=== PATIENT | female | born 1980 | race American Indian/Alaskan Native ===

== ENCOUNTER 2017-01-04 16:03 | Inpatient (IN) | payer OTHER ==
[2017-01-04 16:43] LABS: Basophils % (Auto) 0.7 % (0.0-1.8); Eosinophils % (Auto) 3.2 % (0.0-4.3); Hematocrit 40.5 % (30.3-42.9); Hemoglobin 13.2 gm/dl (10.1-14.3); Mean Corpuscular HGB Conc 33 % (30-34); Mean Corpuscular Hemoglobin 28 pg (28-32); Mean Corpuscular Volume 86 fl (79-97); Platelet Count 176 K/mm3 (140-440); Red Blood Count 4.69 M/mm3 (3.65-5.03); Red Cell Distribution Width 14.1 % (13.2-15.2); White Blood Count 9.6 K/mm3 (4.5-11.0)
[2017-01-04 16:55] LABS: Alanine Aminotransferase 32 units/L (7-56); Albumin 2.9 g/dL (3.9-5); Albumin/Globulin Ratio 0.8 %; Alkaline Phosphatase 84 units/L (35-129); Anion Gap 21 mmol/L; Bilirubin,Total 0.6 mg/dL (0.1-1.2); Calcium 9.3 mg/dL (8.4-10.2); Carbon Dioxide 22 mmol/L (22-30); Chloride 99.5 mmol/L (98-107); Glucose 101 mg/dL (65-100); Lipase 52 units/L (13-60); Sodium 139 mmol/L (137-145); Total Protein 6.5 g/dL (6.3-8.2)
[2017-01-04 16:56] LABS: BUN/Creatinine Ratio 1.42; Blood Urea Nitrogen 1 mg/dL (7-17)
[2017-01-04 17:50] LABS: Bacteria,Urine 1+ /HPF (Negative); Bilirubin,Urine NEG (Negative); Blood,Urine SM (Negative); Ketones,Urine 20 mg/dL (Negative); Leukocyte Esterase,Urine LG (Negative); Mucus,Urine 3+ /HPF; Nitrite,Urine NEG (Negative); Urobilinogen,Urine < 2.0 mg/dL (<2.0)
[2017-01-04] MEDS ORDERED: ZOFRAN IV ONE (23:03)
[2017-01-04] MEDS ORDERED: PEPCID IV ONE (23:03)
[2017-01-04] MEDS ORDERED: NACL 0.9% 1000 ML 1,000 ML IV ONE (23:03)
[2017-01-04] MEDS ORDERED: BENTYL PO ONE (23:03)
[2017-01-04] MEDS ORDERED: TORADOL IV ONE (23:03)
[2017-01-04] MEDS ORDERED: K-DUR PO ONE (23:04)
--- NOTE | 2017-01-04 23:05 | Emergency Department Report ---
ED General Adult HPI - General Chief complaint: Abdominal Pain Stated complaint: ABD PAIN,NAUSEA Time Seen by Provider: 01/04/17 22:38 Source: patient, RN notes reviewed Mode of arrival: Ambulatory Limitations: No Limitations - History of Present Illness Initial comments: This is a 36-year-old female, previously unknown to me. 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 She does not recall which side. Thinks it was done at either [facility], or [facility]. Patient presents to the ER with abdominal pain, nausea and vomiting. Abdominal pain is left-sided, and diffuse. It is sharp. It increases with palpation and decreases with rest. Associated with nausea and vomiting. Denies irritative and obstructive urinary symptoms. Denies sexual activity. States no recent sexual partners. No vaginal discharge. Reports also recently been treated for urinary tract infection. Can't recall which antibiotic. -: Gradual Location: abdomen Quality: aching Consistency: constant Improves with: none Worsens with: none Associated Symptoms: loss of appetite, malaise, nausea/vomiting, weakness - Related Data Allergies Allergy/AdvReac Type Severity Reaction Status Date / Time No Known Allergies Allergy Verified 01/04/17 23:07 ED Review of Systems ROS: Stated complaint: ABD PAIN,NAUSEA Other details as noted in HPI Constitutional: malaise, weakness Eyes: denies: eye discharge ENT: denies: epistaxis Respiratory: denies: cough Cardiovascular: denies: chest pain Gastrointestinal: abdominal pain, nausea, vomiting Genitourinary: as per HPI Skin: denies: lesions Neurological: weakness Psychiatric: anxiety ED Past Medical Hx - Past Medical History Hx Hypertension: Yes Hx Diabetes: Yes Additional medical history: High Cholesterol - Surgical History Past Surgical History?: Yes 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 - Social History Smoking Status: Current Every Day Smoker Substance Use Type: None ED Physical Exam - General Limitations: No Limitations General appearance: alert, in no apparent distress - Head Head exam: Present: atraumatic, normocephalic - Eye Eye exam: Present: normal appearance, EOMI. Absent: nystagmus - ENT ENT exam: Present: normal exam, normal orophraynx, mucous membranes moist - Neck Neck exam: Present: normal inspection, full ROM. Absent: tenderness, meningismus - Respiratory Respiratory exam: Present: normal lung sounds bilaterally. Absent: respiratory distress, wheezes, rales, rhonchi, stridor, chest wall tenderness - Cardiovascular Cardiovascular Exam: Present: normal rhythm, tachycardia, normal heart sounds. Absent: systolic murmur, diastolic murmur, rubs, gallop - GI/Abdominal GI/Abdominal exam: Present: soft, tenderness, normal bowel sounds, other (there is mild diffuse abdominal tenderness. There is no rebound, guarding or peritoneal signs.). Absent: distended, guarding, rebound, rigid, pulsatile mass - External exam: Present: normal external exam Speculum exam: Present: normal speculum exam Bi-manual exam: Present: normal bi-manual exam, other (escorted by SHAYE SALVADOR). Absent: cervical motion tendernes, adnexal tenderness, adnexal mass, uterine enlargement, uterine tenderness - Extremities Exam Extremities exam: Present: normal inspection, full ROM, normal capillary refill. Absent: tenderness, pedal edema, joint swelling, calf tenderness, other - Back Exam Back exam: Present: normal inspection, full ROM. Absent: tenderness, CVA tenderness (R), CVA tenderness (L), muscle spasm, paraspinal tenderness, vertebral tenderness - Neurological Exam Neurological exam: Present: alert, oriented X3, normal gait, other (Extraocular movements intact. Tongue midline. No facial droop. Facial sensation intact to light touch in the V1, V2, V3 distribution bilaterally. 5 and 5 strength in 4 extremities.. Sensation is intact to light touch in 4 extremities.). Absent : motor sensory deficit - Psychiatric Psychiatric exam: Present: normal affect, normal mood - Skin Skin exam: Present: warm, dry, intact, normal color. Absent: rash ED Course Vital Signs 01/04/17 01/05/17 16:11 00:06 Temperature 98.5 F Pulse Rate 112 H Respiratory 20 18 Rate Blood Pressure 158/113 O2 Sat by Pulse 100 99 Oximetry - Reevaluation(s) Reevaluation #1: 01/05/17 01:11 Differential diagnoses: Colitis, diverticulitis, appendicitis, urinary tract infection, dehydration, cyclical vomiting syndrome, narcotic bowel syndrome, cannabinoid hyperemesis syndrome, irritable bowel disease, electrolyte imbalance Assessment and plan: 36-year-old female with abdominal pain, benign gynecologic examination, wet prep demonstrates trichomoniasis. She is afebrile, and found to have hypokalemia. Magnesium is within normal limits. Initial urinalysis contaminated. Patient was instructed on how to produce a repeat clean catch urine sample. Repeat clean catch urine sample still contaminated. CAT scan of the abdomen and pelvis demonstrates nonspecific colitis, may be infectious inflammatory or ischemic. Mesenteric fat stranding is noted in the left upper quadrant around the pancreas , might be postinflammatory versus pancreatitis. Patient was given IV antiemetic medications 2. She was unable to tolerate liquid feeds. Given her CT scan findings, hypokalemia, inability to tolerate liquid feeds, persistent nausea and vomiting, case is discussed with the Hospital physician, Dr. Mendoza, who accepted the patient to his service. ED Medical Decision Making - Lab Data Result diagrams: 01/04/17 16:19 01/04/17 16:19 Vital Signs 01/04/17 01/05/17 16:11 00:06 Temperature 98.5 F Pulse Rate 112 H Respiratory 20 18 Rate Blood Pressure 158/113 O2 Sat by Pulse 100 99 Oximetry Lab Results 01/04/17 01/04/17 01/04/17 Range/Units 16:19 16:19 16:19 WBC 9.6 (4.5-11.0) K/mm3 RBC 4.69 (3.65-5.03) M/mm3 Hgb 13.2 (10.1-14.3) gm/dl Hct 40.5 (30.3-42.9) % MCV 86 (79-97) fl MCH 28 (28-32) pg MCHC 33 (30-34) % RDW 14.1 (13.2-15.2) % Plt Count 176 (140-440) K/mm3 Lymph % (Auto) 33.3 (13.4-35.0) % Grant % (Auto) 9.9 H (0.0-7.3) % Eos % (Auto) 3.2 (0.0-4.3) % Baso % (Auto) 0.7 (0.0-1.8) % Lymph # 3.2 (1.2-5.4) K/mm3 Grant # 1.0 H (0.0-0.8) K/mm3 Eos # 0.3 (0.0-0.4) K/mm3 Baso # 0.1 (0.0-0.1) K/mm3 Seg Neutrophils % 52.9 (40.0-70.0) % Seg Neutrophils # 5.1 (1.8-7.7) K/mm3 Sodium 139 (137-145) mmol/L Potassium 3.0 L (3.6-5.0) mmol/L Chloride 99.5 (98-107) mmol/L Carbon Dioxide 22 (22-30) mmol/L Anion Gap 21 mmol/L BUN 1 L (7-17) mg/dL Creatinine 0.7 (0.7-1.2) mg/dL Estimated GFR > 60 ml/min BUN/Creatinine Ratio 1.42 % Glucose 101 H (65-100) mg/dL POC Glucose 106 H (70-105) Calcium 9.3 (8.4-10.2) mg/dL Magnesium (1.7-2.3) mg/dL Total Bilirubin 0.6 (0.1-1.2) mg/dL AST 37 (5-40) units/L ALT 32 (7-56) units/L Alkaline Phosphatase 84 (35-129) units/L Total Protein 6.5 (6.3-8.2) g/dL Albumin 2.9 L (3.9-5) g/dL Albumin/Globulin Ratio 0.8 % Lipase 52 (13-60) units/L Urine Color (Yellow) Urine Turbidity (Clear) Urine pH (5.0-7.0) Ur Specific [place] (1.003-1.030) Urine Protein (Negative) mg/dL Urine Glucose (UA) (Negative) mg/dL Urine Ketones (Negative) mg/dL Urine Blood (Negative) Urine Nitrite (Negative) Urine Bilirubin (Negative) Urine Urobilinogen (<2.0) mg/dL Ur Leukocyte Esterase (Negative) Urine WBC (Auto) (0.0-6.0) /HPF Urine RBC (Auto) (0.0-6.0) /HPF U Epithel Cells (Auto) (0-13.0) /HPF Urine Bacteria (Auto) (Negative) /HPF Urine WBC Clumps /HPF Calcium Oxalate Crystal Urine Mucus /HPF 01/04/17 01/04/17 01/04/17 Range/Units 23:15 23:48 Unknown WBC (4.5-11.0) K/mm3 RBC (3.65-5.03) M/mm3 Hgb (10.1-14.3) gm/dl Hct (30.3-42.9) % MCV (79-97) fl MCH (28-32) pg MCHC (30-34) % RDW (13.2-15.2) % Plt Count (140-440) K/mm3 Lymph % (Auto) (13.4-35.0) % Grant % (Auto) (0.0-7.3) % Eos % (Auto) (0.0-4.3) % Baso % (Auto) (0.0-1.8) % Lymph # (1.2-5.4) K/mm3 Grant # (0.0-0.8) K/mm3 Eos # (0.0-0.4) K/mm3 Baso # (0.0-0.1) K/mm3 Seg Neutrophils % (40.0-70.0) % Seg Neutrophils # (1.8-7.7) K/mm3 Sodium (137-145) mmol/L Potassium (3.6-5.0) mmol/L Chloride (98-107) mmol/L Carbon Dioxide (22-30) mmol/L Anion Gap mmol/L BUN (7-17) mg/dL Creatinine (0.7-1.2) mg/dL Estimated GFR ml/min BUN/Creatinine Ratio % Glucose (65-100) mg/dL POC Glucose (70-105) Calcium (8.4-10.2) mg/dL Magnesium 1.7 (1.7-2.3) mg/dL Total Bilirubin (0.1-1.2) mg/dL AST (5-40) units/L ALT (7-56) units/L Alkaline Phosphatase (35-129) units/L Total Protein (6.3-8.2) g/dL Albumin (3.9-5) g/dL Albumin/Globulin Ratio % Lipase (13-60) units/L Urine Color Aleja Yellow (Yellow) Urine Turbidity Turbid Cloudy (Clear) Urine pH 5.0 6.0 (5.0-7.0) Ur Specific [place] 1.017 1.013 (1.003-1.030) Urine Protein 100 mg/dl 30 mg/dl (Negative) mg/dL Urine Glucose (UA) Neg Neg (Negative) mg/dL Urine Ketones 20 20 (Negative) mg/dL Urine Blood Sm Sm (Negative) Urine Nitrite Neg Neg (Negative) Urine Bilirubin Neg Neg (Negative) Urine Urobilinogen < 2.0 < 2.0 (<2.0) mg/dL Ur Leukocyte Esterase Mod Lg (Negative) Urine WBC (Auto) 155.0 H 70.0 H (0.0-6.0) /HPF Urine RBC (Auto) 82.0 26.0 (0.0-6.0) /HPF U Epithel Cells (Auto) 86.0 H 19.0 H (0-13.0) /HPF Urine Bacteria (Auto) 4+ 1+ (Negative) /HPF Urine WBC Clumps 2+ /HPF Calcium Oxalate Crystal 2+ Urine Mucus 3+ 3+ /HPF - Radiology Data Radiology results: report reviewed, image reviewed CAT scan of the abdomen and pelvis with IV contrast: Appendix within normal limits. Pericolonic fat stranding. Findings are suspicious for nonspecific colitis, most pronounced in the left colon. There is mesenteric fat stranding in the left upper quadrant around the pancreatic tail, most likely postinflammatory change, cannot exclude pancreatitis. Critical care attestation.: If time is entered above; I have spent that time in minutes in the direct care of this critically ill patient, excluding procedure time. ED Disposition Clinical Impression: Colitis, Hypokalemia Disposition: OP ADMITTED IP TO THIS HOSP Is pt being admited?: Yes Condition: Good Instructions: Abdominal Pain (ED) Referrals: PRIMARY CARE, [Primary Care Provider] - 3-5 Days
[2017-01-04 23:44] LABS: Bacteria,Urine 4+ /HPF (Negative); Bilirubin,Urine NEG (Negative); Blood,Urine SM (Negative); Ketones,Urine 20 mg/dL (Negative); Leukocyte Esterase,Urine MOD (Negative); Mucus,Urine 3+ /HPF; Nitrite,Urine NEG (Negative); Urobilinogen,Urine < 2.0 mg/dL (<2.0)
[2017-01-04] MEDS ORDERED: NACL ONE (23:54)
[2017-01-05] MEDS: KCL 10MEQ/100ML 10 MEQ/100 ML BAG IV SCH ×5 (00:35→09:54)
[2017-01-05] MEDS ORDERED: REGLAN ONE (01:00)
--- NOTE | 2017-01-05 01:00 | Cat Scan Report ---
FINAL REPORT EXAM: CT ABDOMEN PELVIS W CON HISTORY: abd pain n/v TECHNIQUE: Spiral CT scanning of the abdomen and pelvis after the uneventful administration of IV contrast. Multiplanar reformations. 100 mL Omnipaque IV. PRIORS: None. FINDINGS: Abdomen: Visualized lung bases grossly unremarkable. Very small hiatal hernia. Diffuse mesenteric fat stranding in the left upper quadrant around the pancreatic tail and adjacent to splenic flexure of the colon. Surgical clips in the upper abdomen near left adrenal gland. Ovoid, soft tissue nodular density in the right anteromedial diaphragmatic region measuring 1.4 x 2.4 cm may represent prominent lymph node, but nonspecific. No radiopaque gallstones. Liver shows diffusely decreased attenuation without focal abnormality. Spleen without significant abnormality. Remainder of pancreas without significant abnormality. Kidneys without significant abnormality. Adrenal glands without significant abnormality. Pelvis: Colon is incompletely or nondistended, with variable bowel wall and fold thickening, most pronounced in the descending and sigmoid colon, with some pericolonic fat stranding. Remainder of visualized bowel grossly unremarkable. Appendix within normal limits. No significant free peritoneal fluid or discrete abscess. Aortoiliac calcification, out of proportion to patient's age, without aneurysmal dilatation. Fat-containing, bilateral inguinal hernias. IMPRESSION: 1. Findings suspicious for nonspecific postinflammatory change or colitis, most pronounced in the left colon, which may be secondary to infectious, inflammatory or ischemic etiology. Clinical correlation and followup suggested. 2. Mesenteric fat stranding in left upper quadrant around the pancreatic tail cannot exclude postinflammatory change involving the pancreas or pancreatitis. Clinical correlation with appropriate laboratory values and may be warranted. 3. Findings compatible with fatty infiltration in the liver.
[2017-01-05] MEDS ORDERED: REGLAN IV ONE (01:05)
[2017-01-05] MEDS ORDERED: LEVAQUIN 750MG/150ML 750 MG/150 ML BAG IV ONE (01:05)
[2017-01-05] MEDS ORDERED: FLAGYL 500 MG/100 ML 500 MG/100 ML BAG IV SCH (02:00)
--- NOTE | 2017-01-05 05:18 | History and Physical Report ---
History of Present Illness Date of examination: 01/05/17 Date of admission: 01/05/2017 Chief complaint: Left upper quadrant pain for 2 days History of present illness: 36 year old female presents with LUQ pain associated with N/V for about 2 days.No fever or chills.Feels weak.No dysuria or flank pain. Past History Past Medical History: diabetes, hypertension, hyperlipidemia Past Surgical History: Other (Partial adrenalectomy-Side not known) Social history: smoking (1 ppd) Family history: diabetes, hypertension Medications and Allergies Allergies Allergy/AdvReac Type Severity Reaction Status Date / Time No Known Allergies Allergy Verified 01/04/17 23:07 Home Medications Medication Instructions Recorded Confirmed Last Taken Type Carvedilol 25 mg PO BID 01/05/17 01/05/17 Unknown History Hydrocortisone [Cortef TAB] 5 mg PO BID 01/05/17 01/05/17 Unknown History Insulin Detemir [Levemir VIAL] 25 unit SQ QHS 01/05/17 01/05/17 Unknown History Lisinopril [Zestril TAB] 40 mg PO QDAY 01/05/17 01/05/17 Unknown History Rosuvastatin Calcium [Crestor] 40 mg PO QHS 01/05/17 01/05/17 Unknown History Review of Systems All systems: negative Gastrointestinal: abdominal pain (LUQ pain), nausea, vomiting Exam - Constitutional Vitals: Temp Pulse Resp BP Pulse Ox 98.1 F 100 H 18 134/90 99 01/05/17 00:30 01/05/17 03:52 01/05/17 03:52 01/05/17 03:52 01/05/17 03:52 General appearance: Present: no acute distress, well-nourished - EENT Eyes: Present: PERRL ENT: hearing intact, clear oral mucosa - Neck Neck: Present: supple, normal ROM - Respiratory Respiratory effort: normal Respiratory: bilateral: CTA - Cardiovascular Heart Sounds: Present: S1 & S2. Absent: rub, click - Extremities Extremities: pulses symmetrical, No edema Peripheral Pulses: within normal limits - Abdominal General gastrointestinal: Present: soft, tender (Left upper quadrant tenderness) , normal bowel sounds Female genitourinary: Present: normal - Integumentary Integumentary: Present: clear, warm, dry - Musculoskeletal Musculoskeletal: gait normal, strength equal bilaterally - Psychiatric Psychiatric: appropriate mood/affect, intact judgment & insight - Neurologic Neurologic: CNII-XII intact, moves all extremities Results - Labs CBC & Chem 7: 01/05/17 06:45 01/05/17 06:45 Labs: Abnormal lab results 01/04/17 01/04/17 01/04/17 Range/Units 16:19 16:19 16:19 [place] % (Auto) 9.9 H (0.0-7.3) % [place] # 1.0 H (0.0-0.8) K/mm3 Potassium 3.0 L (3.6-5.0) mmol/L BUN 1 L (7-17) mg/dL Glucose 101 H (65-100) mg/dL POC Glucose 106 H (70-105) Albumin 2.9 L (3.9-5) g/dL Urine WBC (Auto) (0.0-6.0) /HPF U Epithel Cells (Auto) (0-13.0) /HPF 01/04/17 01/04/17 Range/Units 23:15 Unknown [place] % (Auto) (0.0-7.3) % [place] # (0.0-0.8) K/mm3 Potassium (3.6-5.0) mmol/L BUN (7-17) mg/dL Glucose (65-100) mg/dL POC Glucose (70-105) Albumin (3.9-5) g/dL Urine WBC (Auto) 155.0 H 70.0 H (0.0-6.0) /HPF U Epithel Cells (Auto) 86.0 H 19.0 H (0-13.0) /HPF Short CBC 01/04/17 01/05/17 Range/Units 16:19 06:45 WBC 9.6 9.0 (4.5-11.0) K/mm3 Hgb 13.2 12.0 (10.1-14.3) gm/dl Hct 40.5 35.7 (30.3-42.9) % Plt Count 176 166 (140-440) K/mm3 BMP 01/04/17 01/05/17 16:19 06:45 Sodium 139 142 Potassium 3.0 L 3.5 L Chloride 99.5 104.6 Carbon Dioxide 22 21 L BUN 1 L 3 L Creatinine 0.7 0.7 Glucose 101 H 82 Calcium 9.3 8.8 Liver Function 01/04/17 01/05/17 Range/Units 16:19 06:45 Total Bilirubin 0.6 0.5 (0.1-1.2) mg/dL AST 37 28 (5-40) units/L ALT 32 24 (7-56) units/L Alkaline Phosphatase 84 75 (35-129) units/L Albumin 2.9 L 2.5 L (3.9-5) g/dL Urine 01/04/17 01/04/17 Range/Units 23:15 Unknown Urine Color Aleja Yellow (Yellow) Urine pH 5.0 6.0 (5.0-7.0) Ur Specific [place] 1.017 1.013 (1.003-1.030) Urine Protein 100 mg/dl 30 mg/dl (Negative) mg/dL Urine Glucose (UA) Neg Neg (Negative) mg/dL - Imaging and Cardiology CT scan - abdomen: report reviewed (L Splenic flexure colitis) Assessment and Plan - Patient Problems (1) Colitis Current Visit: Yes Status: Acute Plan to address problem: Clear liquid diet Zosyn and flagyl iv started GI consulted IV zofran and IV dilaudid for pain and nausea (2) Hypokalemia Current Visit: Yes Status: Acute Plan to address problem: Supplemented (3) HTN (hypertension) Current Visit: Yes Status: Chronic Qualifiers: Hypertension type: essential hypertension Qualified Code(s): I10 - Essential (primary) hypertension Plan to address problem: Resume antihypertensives (4) IDDM (insulin dependent diabetes mellitus) Current Visit: Yes Status: Chronic Plan to address problem: Coverage for now (5) HLD (hyperlipidemia) Current Visit: Yes Status: Chronic Qualifiers: Hyperlipidemia type: mixed hyperlipidemia Qualified Code(s): E78.2 - Mixed hyperlipidemia Plan to address problem: Cont statins (6) DVT prophylaxis Current Visit: Yes Status: Acute Plan to address problem: On lovenox
[2017-01-05] MEDS ORDERED: TYLENOL PO PRN (05:21)
[2017-01-05] MEDS ORDERED: ZOFRAN IV PRN (05:21)
[2017-01-05] MEDS ORDERED: DULCOLAX PR PRN (05:21)
[2017-01-05] MEDS ORDERED: MILK OF MAGNESIA PO PRN (05:21)
[2017-01-05] MEDS ORDERED: KCL 10MEQ/100ML 10 MEQ/100 ML BAG IV ONE (05:22)
[2017-01-05] MEDS ORDERED: NOVOLOG SUB-Q ONE (05:37)
[2017-01-05] MEDS ORDERED: NACL 0.9% 1000 ML 1,000 ML IV SCH (06:00)
[2017-01-05 07:06] LABS: Basophils % (Auto) 2.5 % (0.0-1.8); Eosinophils % (Auto) 4.2 % (0.0-4.3); Hematocrit 35.7 % (30.3-42.9); Mean Corpuscular HGB Conc 34 % (30-34); Mean Corpuscular Hemoglobin 29 pg (28-32); Mean Corpuscular Volume 86 fl (79-97); Platelet Count 166 K/mm3 (140-440); Red Blood Count 4.15 M/mm3 (3.65-5.03); Red Cell Distribution Width 14.4 % (13.2-15.2)
[2017-01-05 07:20] LABS: Alanine Aminotransferase 24 units/L (7-56); Albumin 2.5 g/dL (3.9-5); Albumin/Globulin Ratio 0.8 %; Alkaline Phosphatase 75 units/L (35-129); Anion Gap 20 mmol/L; BUN/Creatinine Ratio 4.28; Bilirubin,Total 0.5 mg/dL (0.1-1.2); Blood Urea Nitrogen 3 mg/dL (7-17); Calcium 8.8 mg/dL (8.4-10.2); Carbon Dioxide 21 mmol/L (22-30); Chloride 104.6 mmol/L (98-107); Glucose 82 mg/dL (65-100); Potassium 3.5 mmol/L (3.6-5.0); Sodium 142 mmol/L (137-145); Total Protein 5.6 g/dL (6.3-8.2)
[2017-01-05] MEDS: ZOSYN/NS 4.5GM/100ML 4.5 GM/100 ML VIAL IV SCH ×3 (07:35→22:32)
[2017-01-05] MEDS: FLAGYL 500 MG/100 ML 500 MG/100 ML BAG IV SCH ×2 (09:55→17:11)
[2017-01-05] MEDS ORDERED: CATAPRES-TTS PATCH TD SCH (10:00)
[2017-01-05] MEDS: LOVENOX SUB-Q SCH (10:30)
--- NOTE | 2017-01-05 13:00 | Event Note ---
Date: 01/05/17 Patient with colitis and UTI. She was seen and examined. Continue current management. Repeat BMP.
[2017-01-05 13:47] LABS: BUN/Creatinine Ratio 4.28; Blood Urea Nitrogen 3 mg/dL (7-17); Calcium 8.9 mg/dL (8.4-10.2); Carbon Dioxide 21 mmol/L (22-30); Glucose 83 mg/dL (65-100)
[2017-01-05 13:48] LABS: Chloride 101.7 mmol/L (98-107); Potassium 3.6 mmol/L (3.6-5.0); Sodium 139 mmol/L (137-145)
[2017-01-05 13:49] LABS: Anion Gap 20 mmol/L
[2017-01-05] MEDS: HABITROL TD SCH (14:59)
[2017-01-05] MEDS: DILAUDID IV PRN (16:31)
[2017-01-05] MEDS: K-DUR PO SCH (16:41)
[2017-01-05] MEDS: ZOFRAN IV PRN (17:47)
[2017-01-05] MEDS: D5NS 1,000 ML IV SCH (17:47)
[2017-01-06] MEDS: DILAUDID IV PRN (00:13)
[2017-01-06] MEDS: REGLAN IV PRN (00:14)
[2017-01-06] MEDS: FLAGYL 500 MG/100 ML 500 MG/100 ML BAG IV SCH ×3 (01:33→19:54)
[2017-01-06] MEDS: ZOSYN/NS 4.5GM/100ML 4.5 GM/100 ML VIAL IV SCH ×3 (05:35→22:44)
[2017-01-06 06:47] LABS: Basophils % (Auto) 0.5 % (0.0-1.8); Eosinophils % (Auto) 6.4 % (0.0-4.3); Hematocrit 34.3 % (30.3-42.9); Hemoglobin 11.4 gm/dl (10.1-14.3); Mean Corpuscular HGB Conc 33 % (30-34); Mean Corpuscular Hemoglobin 29 pg (28-32); Mean Corpuscular Volume 87 fl (79-97); Platelet Count 156 K/mm3 (140-440); Red Blood Count 3.95 M/mm3 (3.65-5.03); Red Cell Distribution Width 14.5 % (13.2-15.2); White Blood Count 6.3 K/mm3 (4.5-11.0)
[2017-01-06 07:00] LABS: BUN/Creatinine Ratio 4.28; Blood Urea Nitrogen 3 mg/dL (7-17); Calcium 8.4 mg/dL (8.4-10.2); Carbon Dioxide 22 mmol/L (22-30); Chloride 104.6 mmol/L (98-107); Glucose 100 mg/dL (65-100); Potassium 3.2 mmol/L (3.6-5.0); Sodium 142 mmol/L (137-145)
[2017-01-06 07:14] LABS: Anion Gap 19 mmol/L
--- NOTE | 2017-01-06 08:17 | Consultation ---
REFERRING PHYSICIAN: Dre Shields MD. INDICATION: Abdominal pain. HISTORY OF PRESENT ILLNESS: The patient is a 36-year-old black female, presents for abdominal pain. The patient reports two days of lower left-sided abdominal pain associated with some nausea and vomiting. She reports no fevers or chills. She reports no diarrhea, constipation or rectal bleeding. The patient reports she has had this intermittent pain for about a month and gives a vague history that she had been to [facility] times and was treated conservatively and sent home without colonoscopy. She subsequently came to the Emergency Room and evaluated. CT scan done at that time showed colitis and she subsequently was admitted and GI consulted. No other specific problems or complaints. PAST MEDICAL HISTORY: 1. Diabetes. 2. Hypertension. 3. High cholesterol. 4. Status post partial adrenalectomy. MEDICATIONS: See chart. ALLERGIES: No known drug allergies. SOCIAL HISTORY: One pack a day smoker. FAMILY HISTORY: Negative for colon cancer. REVIEW OF SYSTEMS: GENERAL: Reports mild weakness. HEENT: No visual complaints or tinnitus. PULMONARY: No shortness of breath. No cough. No chest pain. GASTROINTESTINAL: Reports abdominal pain. All points of 13-point review of systems otherwise negative. PHYSICAL EXAMINATION: VITAL SIGNS: Temperature of 98.7, pulse 70, respirations 20, blood pressure 145/89. GENERAL: Fairly nourished black female, in mild distress. HEENT: Pupils equal, round, reactive to light and accommodation. Extraocular muscles intact. PULMONARY: Clear to auscultation bilaterally. CARDIOVASCULAR: Regular rhythm. Normal S1, S2. ABDOMEN: Soft. Mild lower abdominal discomfort, no guarding, no rebound. SKIN: No obvious rashes. LABORATORY DATA: Pertinent for white count of 9, hemoglobin and hematocrit of 12.0 and 35.7, platelet count of 166,000. Chem-7 within normal limits. LFTs within normal limits. CT scan shows findings suspicious for nonspecific postinflammatory changes or colitis in the left colon and fat stranding in the left upper quadrant around the pancreatic tail can exclude possible pancreatitis. ASSESSMENT: A 36-year-old black female presents with 2-3 days of lower abdominal pain and cramping with CT scan showing signs of colitis. There is also a vague mention of some inflammatory changes, raising possibility of pancreatitis, though her exam was more consistent with lower abdominal findings. Management as noted below. PLAN: 1. We will review CT scan. 2. We will get labs including amylase and lipase in a.m. as well as CRP. 3. Agree with antibiotics as ordered. 4. The patient gives a vague history that she has had these symptoms over the last month and based on progress, we will consider colonoscopy. 5. Clear liquid diet at this time with advance diet based on progress. 6. We will follow. JOB# [id number] MAI/EUGENIA CAREY
--- NOTE | 2017-01-06 08:19 | Admit Criteria Form ---
Admission Criteria Documentation: ABDOMINAL PAIN Clinical Indications for Admission to Inpatient Care (Place 'X' for any and all applicable criteria): Admission is indicated for ANY ONE of the following(1)(2)(3)(4)(5): [X]I. Inpatient admission required rather than observation care (Also use Abdominal Pain: Observation Care, as appropriate) because of ANY ONE of the following: [X]a) Severe pain requiring acute inpatient management [X]b) Identification of etiology/finding that requires inpatient care (eg, aortic dissection, free air) [ ]c) Absent bowel sounds with complete ileus(6) [ ]d) Suspected toxic megacolon [X]e) Severe electrolyte abnormalities requiring inpatient care [ ]f) High fever or infection requiring inpatient admission as indicated by ANY ONE of following(7)(8): [ ] i) Appropriate outpatient or observational care antimicrobial treatment unavailable, not effective, or not feasible [ ] ii) Documented bacteremia [ ] iii) Temperature > 104.9 degrees F (oral) [ ] iv) T >103.1 F (oral) or < 96.8 F(rectal) that does not respond to all emergency treatment measures [ ]g) Signs of intestinal obstruction [B] [ ]h) Hemodynamic instability [ ]i) IV fluid to replace significant ongoing losses (greater than 3 L/m2 per day) (12)(13) [ ]j) Percutaneous or open drainage (eg, abscess, biliary tract ) procedures [ ]k) Parenteral nutrition regimen that must be implemented on inpatient basis [X]l) Other condition,treatment or monitoring requiring inpatient admission. [ ]II. Peritoneal signs present [ ]III. Surgery needed that cannot be performed on an ambulatory basis. [ ]IV. Evaluation requires patient to not eat or drink for extended period ( eg, more than 24 hours). [ ]V. Contraindications and/or Inappropriate clinical situations for Observational Care in patients with abdominal pain, when ANY ONE of the following is required: [ ]a) Thorough evaluation is required to prevent catastrophic events due to delays in diagnosing (e.g.Mesenteric ischemia) 1,3 [ ]b) Patient with severe pathology or with chronic symptoms unlikely to improve in the ED stay (3) [ ]. General contraindications and/or Inappropriate clinical situations for Observational Care in patients with abdominal pain, when ANY ONE of the following is required: [ ]a) Prediction of prolongation of LOS based on ANY ONE of the following may be considered as a contraindication for observational care 2, 3, 4, 5, 6, 7, 8, 9, 10, 11 [ ]i) Age > 65 yrs. [ ]ii) Patient arriving by ambulance [ ]iii) Patient with high acuity [ ]iv) Patient requiring vital sign monitoring [ ]v) Patient on IV medication [ ]b) Systolic blood pressures 180mmHg 3,12 [ ]c) Patient with altered mental status including delirium and other alteration of consciousness, (3) [ ]d) Patient whose discharge disposition will be to a halfway home or rehabilitation home should not be managed in Emergency Department Observation Unit. CMS rule requires 3 days hospital stay before such placement.3,13 [ ]e) Patient with failure to thrive due to broad array of etiologies 3,16,17 [ ]f) Inability to ambulate 3,14 Extended stay beyond goal length of stay may be needed for(2)(3): [ ]a) Persistent abdominal pain with suspected intra-abdominal process [ ]b) Diagnosed condition requiring continued stay (e.g., pancreatitis, complicated diverticulitis) [ ]c) Surgery (e.g., colectomy) The original [facility] content created by [employer] has been revised. The portions of the content which have been revised are identified through the use of italic text or in bold, and [facility] has neither reviewed nor approved the modified material.All other unmodified content is copyright [facility]. Please see references footnoted in the original [facility] edition 2016 Admission Criteria Met: Yes
[2017-01-06] MEDS: KCL 10MEQ/100ML 10 MEQ/100 ML BAG IV SCH ×2 (08:39→11:33)
--- NOTE | 2017-01-06 08:59 | Gastroenterology Progress Note ---
Assessment and Plan GI: pt h/o dm presents w/ abdominal pain and signs colitis now w/ continued symptoms - possible gastroparesis as contributing factor w/ colitis - continue current meds and diet - if symptoms persist today probable egd/colon in am - start Carafate susp qid w/ ppi qd - will follow - Subjective Date of service: 01/06/17 Interval history: - reports continued nausea, vomiting w/ decrease abdominal pain Objective - Constitutional Vitals: Temp Pulse Resp BP Pulse Ox 98.2 F 88 20 152/94 98 01/06/17 00:00 01/06/17 00:00 01/06/17 00:00 01/06/17 00:00 01/06/17 00:00 General appearance: no acute distress - EENT ENT: hearing intact - Respiratory Respiratory: bilateral: CTA - Cardiovascular Rhythm: regular Heart Sounds: Present: S1 & S2 - Gastrointestinal General gastrointestinal: Present: soft, non-tender - Labs CBC & Chem 7: 01/06/17 06:16 01/06/17 06:16 Labs: Laboratory Results - last 24 hr 01/05/17 01/05/17 01/05/17 06:45 13:12 22:03 WBC RBC Hgb Hct MCV MCH MCHC RDW Plt Count Lymph % (Auto) [place] % (Auto) Eos % (Auto) Baso % (Auto) Lymph # Bib[place] # Eos # Baso # Seg Neutrophils % Seg Neutrophils # Sodium 139 Potassium 3.6 Chloride 101.7 Carbon Dioxide 21 L Anion Gap 20 BUN 3 L Creatinine 0.7 Estimated GFR > 60 BUN/Creatinine Ratio 4.28 Glucose 83 POC Glucose 100 Hemoglobin A1c 7.5 H Calcium 8.9 C-Reactive Protein Lipase 01/06/17 01/06/17 01/06/17 06:06 06:16 06:16 WBC 6.3 RBC 3.95 Hgb 11.4 Hct 34.3 MCV 87 MCH 29 MCHC 33 RDW 14.5 Plt Count 156 Lymph % (Auto) 29.6 Bib[place] % (Auto) 13.7 H Eos % (Auto) 6.4 H Baso % (Auto) 0.5 Lymph # 1.9 Bibb # 0.9 H Eos # 0.4 Baso # 0.0 Seg Neutrophils % 49.8 Seg Neutrophils # 3.1 Sodium 142 Potassium 3.2 L Chloride 104.6 Carbon Dioxide 22 Anion Gap 19 BUN 3 L Creatinine 0.7 Estimated GFR > 60 BUN/Creatinine Ratio 4.28 Glucose 100 POC Glucose 91 Hemoglobin A1c Calcium 8.4 C-Reactive Protein Lipase 01/06/17 06:16 WBC RBC Hgb Hct MCV MCH MCHC RDW Plt Count Lymph % (Auto) [place] % (Auto) Eos % (Auto) Baso % (Auto) Lymph # Bib[place] # Eos # Baso # Seg Neutrophils % Seg Neutrophils # Sodium Potassium Chloride Carbon Dioxide Anion Gap BUN Creatinine Estimated GFR BUN/Creatinine Ratio Glucose POC Glucose Hemoglobin A1c Calcium C-Reactive Protein 1.00 Lipase 29
[2017-01-06] MEDS: D5NS 1,000 ML IV SCH (09:12)
[2017-01-06] MEDS: LOVENOX SUB-Q SCH (09:13)
[2017-01-06] MEDS: K-DUR PO SCH (09:13)
[2017-01-06] MEDS: HABITROL TD SCH (09:13)
[2017-01-06] MEDS ORDERED: FLUARIX QUAD 2016-2017(36 MOS+) IM ONE (12:00)
[2017-01-06] MEDS ORDERED: PNEUMOVAX 23 IM ONE (12:00)
--- NOTE | 2017-01-06 13:12 | Progress Note ---
Assessment and Plan Assessment and plan: Colitis with abdominal pain, Nausea and vomiting. Zofran IV when necessary. IV fluids. GI consulted. Diabetes mellitus type II. Fingerstick blood glucose before every meal and at bedtime Hypertension, the patient has been stable Hyperliipidemia Full CODE STATUS History Interval history: still has nausea and vomiting, no diarrhea Hospitalist Physical - Physical exam Narrative exam: Gen appearance: not in acute distress, HEENT: Normocephalic, atraumatic Neck : supple, no JVD Lungs: Lungs clear to auscultation bilaterally, no crackles or wheeze. Heart : S1 and S2 regular, no murmurs rubs or gallop, Abdomen: soft, non-tender, non distended, normal bowel sounds Extremities: No edema, clubbing, or cyanosis, Neuro :awake ,alert , oriented x 3, no focal signs Psych: calm - Constitutional Vitals: Temp Pulse Resp BP Pulse Ox 98.0 F 92 H 20 143/96 100 01/06/17 08:16 01/06/17 08:16 01/06/17 08:16 01/06/17 08:16 01/06/17 08:16 General appearance: Present: no acute distress, well-nourished Results - Labs CBC & Chem 7: 01/06/17 06:16 01/07/17 08:53 Labs: Laboratory Last Values WBC 6.3 K/mm3 (4.5-11.0) 01/06/17 06:16 RBC 3.95 M/mm3 (3.65-5.03) 01/06/17 06:16 Hgb 11.4 gm/dl (10.1-14.3) 01/06/17 06:16 Hct 34.3 % (30.3-42.9) 01/06/17 06:16 MCV 87 fl (79-97) 01/06/17 06:16 MCH 29 pg (28-32) 01/06/17 06:16 MCHC 33 % (30-34) 01/06/17 06:16 RDW 14.5 % (13.2-15.2) 01/06/17 06:16 Plt Count 156 K/mm3 (140-440) 01/06/17 06:16 Lymph % (Auto) 29.6 % (13.4-35.0) 01/06/17 06:16 [place] % (Auto) 13.7 % (0.0-7.3) H 01/06/17 06:16 Eos % (Auto) 6.4 % (0.0-4.3) H 01/06/17 06:16 Baso % (Auto) 0.5 % (0.0-1.8) 01/06/17 06:16 Lymph # 1.9 K/mm3 (1.2-5.4) 01/06/17 06:16 [place] # 0.9 K/mm3 (0.0-0.8) H 01/06/17 06:16 Eos # 0.4 K/mm3 (0.0-0.4) 01/06/17 06:16 Baso # 0.0 K/mm3 (0.0-0.1) 01/06/17 06:16 Seg Neutrophils % 49.8 % (40.0-70.0) 01/06/17 06:16 Seg Neutrophils # 3.1 K/mm3 (1.8-7.7) 01/06/17 06:16 Sodium 142 mmol/L (137-145) 01/06/17 06:16 Potassium 3.2 mmol/L (3.6-5.0) L 01/06/17 06:16 Chloride 104.6 mmol/L (98-107) 01/06/17 06:16 Carbon Dioxide 22 mmol/L (22-30) 01/06/17 06:16 Anion Gap 19 mmol/L 01/06/17 06:16 BUN 3 mg/dL (7-17) L 01/06/17 06:16 Creatinine 0.7 mg/dL (0.7-1.2) 01/06/17 06:16 Estimated GFR > 60 ml/min 01/06/17 06:16 BUN/Creatinine Ratio 4.28 % 01/06/17 06:16 Glucose 100 mg/dL (65-100) 01/06/17 06:16 POC Glucose 106 (70-105) H 01/06/17 11:44 Hemoglobin A1c 7.5 % (4-6) H 01/05/17 06:45 Calcium 8.4 mg/dL (8.4-10.2) 01/06/17 06:16 Magnesium 1.7 mg/dL (1.7-2.3) 01/04/17 23:48 Total Bilirubin 0.5 mg/dL (0.1-1.2) 01/05/17 06:45 AST 28 units/L (5-40) 01/05/17 06:45 ALT 24 units/L (7-56) 01/05/17 06:45 Alkaline Phosphatase 75 units/L (35-129) 01/05/17 06:45 C-Reactive Protein 1.00 mg/dL (0.00-1.30) 01/06/17 06:16 Total Protein 5.6 g/dL (6.3-8.2) L 01/05/17 06:45 Albumin 2.5 g/dL (3.9-5) L 01/05/17 06:45 Albumin/Globulin Ratio 0.8 % 01/05/17 06:45 Lipase 29 units/L (13-60) 01/06/17 06:16 Urine Color Yellow (Yellow) 01/04/17 Unknown Urine Turbidity Cloudy (Clear) 01/04/17 Unknown Urine pH 6.0 (5.0-7.0) 01/04/17 Unknown Ur Specific [place] 1.013 (1.003-1.030) 01/04/17 Unknown Urine Protein 30 mg/dl mg/dL (Negative) 01/04/17 Unknown Urine Glucose (UA) Neg mg/dL (Negative) 01/04/17 Unknown Urine Ketones 20 mg/dL (Negative) 01/04/17 Unknown Urine Blood Sm (Negative) 01/04/17 Unknown Urine Nitrite Neg (Negative) 01/04/17 Unknown Urine Bilirubin Neg (Negative) 01/04/17 Unknown Urine Urobilinogen < 2.0 mg/dL (<2.0) 01/04/17 Unknown Ur Leukocyte Esterase Lg (Negative) 01/04/17 Unknown Urine WBC (Auto) 70.0 /HPF (0.0-6.0) H 01/04/17 Unknown Urine RBC (Auto) 26.0 /HPF (0.0-6.0) 01/04/17 Unknown U Epithel Cells (Auto) 19.0 /HPF (0-13.0) H 01/04/17 Unknown Urine Bacteria (Auto) 1+ /HPF (Negative) 01/04/17 Unknown Urine WBC Clumps 2+ /HPF 02/04/17 Unknown Calcium Oxalate Crystal 2+ 01/04/17 23:15 Urine Mucus 3+ /HPF 01/04/17 Unknown
[2017-01-06] MEDS ORDERED: GOLYTELY PO ONE (18:00)
[2017-01-06] MEDS: CARAFATE PO SCH ×2 (18:13→18:15)
[2017-01-07] MEDS ORDERED: ROBINUL ONE (00:24)
[2017-01-07] MEDS: CARAFATE PO SCH ×4 (00:56→23:02)
[2017-01-07] MEDS: FLAGYL 500 MG/100 ML 500 MG/100 ML BAG IV SCH ×2 (02:58→16:30)
[2017-01-07] MEDS: ZOSYN/NS 4.5GM/100ML 4.5 GM/100 ML VIAL IV SCH ×3 (06:08→22:10)
[2017-01-07 09:55] LABS: Anion Gap 18 mmol/L; Calcium 8.9 mg/dL (8.4-10.2); Carbon Dioxide 22 mmol/L (22-30); Chloride 105.3 mmol/L (98-107); Glucose 128 mg/dL (65-100); Magnesium 1.7 mg/dL (1.7-2.3); Phosphorous 4.3 mg/dL (2.5-4.5); Potassium 3.5 mmol/L (3.6-5.0); Sodium 142 mmol/L (137-145)
[2017-01-07 09:58] LABS: BUN/Creatinine Ratio 1.42; Blood Urea Nitrogen < 1 mg/dL (7-17)
[2017-01-07] MEDS: HABITROL TD SCH (10:22)
[2017-01-07] MEDS: LOVENOX SUB-Q SCH (10:23)
[2017-01-07] MEDS: K-DUR PO SCH (10:26)
--- NOTE | 2017-01-07 12:41 | Anesthesia Day of Surgery ---
Anesthesia Day of Surgery - Day of Surgery Patient Examined: Yes Patient H&P Reviewed: Yes Patient is NPO: Yes (1 Cup of water at 10AM)
--- NOTE | 2017-01-07 12:45 | Anesthesia Consultation ---
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
[2017-01-07] MEDS ORDERED: DIPRIVAN 10 MG/ML IV ONE ×3 (13:13→13:25)
--- NOTE | 2017-01-07 13:43 | Post Operative Note ---
Pre-op diagnosis: nausea Post-op diagnosis: same Findings: EGD: irregular z-line (bx's) - gastritis (bx's) - mild duodenitis (bx's0 - negative other Procedure: EGD Anesthesia: MAC Surgeon: JOYCE CROWDER Estimated blood loss: none Pathology: list Specimen disposition: to lab Condition: stable Disposition: floor
[2017-01-07] MEDS ORDERED: WATER FOR IRRIG STERILE IR ONE (13:50)
[2017-01-07] MEDS ORDERED: NORMODYNE IV ONE (13:54)
[2017-01-07] MEDS ORDERED: DILAUDID ONE (13:57)
[2017-01-07] MEDS ORDERED: NACL 0.9% 1000 ML 1,000 ML IV SCH (14:00)
[2017-01-07] MEDS: DILAUDID IV PRN ×2 (14:05→20:56)
--- NOTE | 2017-01-07 14:09 | Operative Report ---
PROCEDURE: EGD and cold biopsy. INDICATIONS: 1. Nausea, vomiting. 2. Upper abdominal pain. MEDICATIONS: Propofol per PUBLICITY MANAGER. COMPLICATIONS: None. DESCRIPTION OF PROCEDURE: The patient was brought to the procedure suite. The patient had the procedure discussed with her at length. All risks, complications, and benefits were discussed after which the patient signed for the procedure to be performed. The patient was placed in left lateral decubitus position. Mouth block was placed in the patient's oral cavity. After adequate sedation medication as above, the endoscope was introduced into the mouth and brought to the level of the second portion of duodenum. Retroflexion view performed. The patient's vital signs remained stable throughout the procedure. FINDINGS: There was noted to be a small to medium hiatal hernia at GE junction. Irregular Z-line noted at 37 cm from the gums. The esophagus otherwise appeared to be normal. Mild antral gastritis noted. Biopsies were taken and sent to pathology. The remaining stomach otherwise appeared to be normal. Mild inflammation noted in the duodenal bulb and first portion of duodenum, but no significant ulcers or inflammation. Biopsy taken and sent to pathology. The remaining duodenum otherwise appeared to be normal. Retroflexion view performed in the stomach showed no other pathology other than noted above. The patient tolerated the procedure well. No complications during the procedure. IMPRESSION: 1. Hiatal hernia. 2. Irregular Z-line with biopsies performed. 3. Otherwise, normal esophagus. 4. Gastritis with biopsies performed. 5. Otherwise, normal stomach. 6. Duodenitis with biopsies performed. 7. Otherwise, normal duodenum. RECOMMENDATIONS: 1. Follow up biopsy results. 2. If stool for H. pylori positive, we will treat. 3. Antireflux diet. 4. Consider gastric emptying study based on progress. 5. Further recommendation based on progress. 6. If the patient tolerating p.o., okay to discharge from GI standpoint. JOB# [id number] CAB/NTS
--- NOTE | 2017-01-07 14:20 | Post Anesthesia Evaluation ---
- Post Anesthesia Evaluation Patient Participated: Yes Airway Patent: Yes Stable Respiratory Function: Yes Nausea/Vomiting: No Temp > 96.8F: Yes Pain Manageable: Yes Adequeate Hydration: Yes Anesthesia Complications: No Block Receding Appropriately: Not Applicable Patient on Ventilator: No
--- NOTE | 2017-01-07 14:36 | Progress Note ---
Hospitalist Physical - Constitutional Vitals: Temp Pulse Resp BP Pulse Ox 97.5 F L 77 22 160/102 98 01/07/17 13:40 01/07/17 14:32 01/07/17 14:32 01/07/17 14:32 01/07/17 14:32 General appearance: Present: no acute distress, well-nourished Results - Labs CBC & Chem 7: 01/06/17 06:16 01/07/17 08:53 Labs: Laboratory Last Values WBC 6.3 K/mm3 (4.5-11.0) 01/06/17 06:16 RBC 3.95 M/mm3 (3.65-5.03) 01/06/17 06:16 Hgb 11.4 gm/dl (10.1-14.3) 01/06/17 06:16 Hct 34.3 % (30.3-42.9) 01/06/17 06:16 MCV 87 fl (79-97) 01/06/17 06:16 MCH 29 pg (28-32) 01/06/17 06:16 MCHC 33 % (30-34) 01/06/17 06:16 RDW 14.5 % (13.2-15.2) 01/06/17 06:16 Plt Count 156 K/mm3 (140-440) 01/06/17 06:16 Lymph % (Auto) 29.6 % (13.4-35.0) 01/06/17 06:16 [place] % (Auto) 13.7 % (0.0-7.3) H 01/06/17 06:16 Eos % (Auto) 6.4 % (0.0-4.3) H 01/06/17 06:16 Baso % (Auto) 0.5 % (0.0-1.8) 01/06/17 06:16 Lymph # 1.9 K/mm3 (1.2-5.4) 01/06/17 06:16 [place] # 0.9 K/mm3 (0.0-0.8) H 01/06/17 06:16 Eos # 0.4 K/mm3 (0.0-0.4) 01/06/17 06:16 Baso # 0.0 K/mm3 (0.0-0.1) 01/06/17 06:16 Seg Neutrophils % 49.8 % (40.0-70.0) 01/06/17 06:16 Seg Neutrophils # 3.1 K/mm3 (1.8-7.7) 01/06/17 06:16 Sodium 142 mmol/L (137-145) 01/07/17 08:53 Potassium 3.5 mmol/L (3.6-5.0) L 01/07/17 08:53 Chloride 105.3 mmol/L (98-107) 01/07/17 08:53 Carbon Dioxide 22 mmol/L (22-30) 01/07/17 08:53 Anion Gap 18 mmol/L 01/07/17 08:53 BUN < 1 mg/dL (7-17) L 01/07/17 08:53 Creatinine 0.7 mg/dL (0.7-1.2) 01/07/17 08:53 Estimated GFR > 60 ml/min 01/07/17 08:53 BUN/Creatinine Ratio 1.42 % 01/07/17 08:53 Glucose 128 mg/dL (65-100) H 01/07/17 08:53 POC Glucose 131 (70-105) H 01/07/17 06:41 Hemoglobin A1c 7.5 % (4-6) H 01/05/17 06:45 Calcium 8.9 mg/dL (8.4-10.2) 01/07/17 08:53 Phosphorus 4.3 mg/dL (2.5-4.5) 01/07/17 08:53 Magnesium 1.7 mg/dL (1.7-2.3) 01/07/17 08:53 Total Bilirubin 0.5 mg/dL (0.1-1.2) 01/05/17 06:45 AST 28 units/L (5-40) 01/05/17 06:45 ALT 24 units/L (7-56) 01/05/17 06:45 Alkaline Phosphatase 75 units/L (35-129) 01/05/17 06:45 C-Reactive Protein 1.00 mg/dL (0.00-1.30) 01/06/17 06:16 Total Protein 5.6 g/dL (6.3-8.2) L 01/05/17 06:45 Albumin 2.5 g/dL (3.9-5) L 01/05/17 06:45 Albumin/Globulin Ratio 0.8 % 01/05/17 06:45 Lipase 29 units/L (13-60) 01/06/17 06:16 Urine Color Yellow (Yellow) 01/04/17 Unknown Urine Turbidity Cloudy (Clear) 01/04/17 Unknown Urine pH 6.0 (5.0-7.0) 01/04/17 Unknown Ur Specific [place] 1.013 (1.003-1.030) 01/04/17 Unknown Urine Protein 30 mg/dl mg/dL (Negative) 01/04/17 Unknown Urine Glucose (UA) Neg mg/dL (Negative) 01/04/17 Unknown Urine Ketones 20 mg/dL (Negative) 01/04/17 Unknown Urine Blood Sm (Negative) 01/04/17 Unknown Urine Nitrite Neg (Negative) 01/04/17 Unknown Urine Bilirubin Neg (Negative) 01/04/17 Unknown Urine Urobilinogen < 2.0 mg/dL (<2.0) 01/04/17 Unknown Ur Leukocyte Esterase Lg (Negative) 01/04/17 Unknown Urine WBC (Auto) 70.0 /HPF (0.0-6.0) H 01/04/17 Unknown Urine RBC (Auto) 26.0 /HPF (0.0-6.0) 01/04/17 Unknown U Epithel Cells (Auto) 19.0 /HPF (0-13.0) H 01/04/17 Unknown Urine Bacteria (Auto) 1+ /HPF (Negative) 01/04/17 Unknown Urine WBC Clumps 2+ /HPF 01/04/17 Unknown Calcium Oxalate Crystal 2+ 01/04/17 23:15 Urine Mucus 3+ /HPF 01/04/17 Unknown
[2017-01-07] MEDS: D5NS 1,000 ML IV SCH (20:55)
[2017-01-07] MEDS: ZOFRAN IV PRN (20:56)
[2017-01-07] MEDS: CORTEF PO SCH (23:02)
[2017-01-07] MEDS: COREG PO SCH (23:04)
[2017-01-08] MEDS: FLAGYL 500 MG/100 ML 500 MG/100 ML BAG IV SCH (02:34)
[2017-01-08] MEDS: ZOSYN/NS 4.5GM/100ML 4.5 GM/100 ML VIAL IV SCH ×2 (06:31→16:20)
[2017-01-08] MEDS: CARAFATE PO SCH ×2 (06:32→14:02)
[2017-01-08] MEDS: REGLAN IV PRN (06:40)
[2017-01-08] MEDS ORDERED: ZESTRIL PO SCH (10:00)
[2017-01-08] MEDS: HABITROL TD SCH (10:35)
[2017-01-08] MEDS: LOVENOX SUB-Q SCH (10:36)
[2017-01-08] MEDS: COREG PO SCH (10:36)
[2017-01-08] MEDS: CORTEF PO SCH (10:38)
[2017-01-08] MEDS: K-DUR PO SCH ×2 (10:48→14:01)
--- NOTE | 2017-01-08 11:12 | Discharge Summary ---
Providers - Providers Date of Admission: 01/05/17 05:21 Date of discharge: 01/08/17 Attending physician: JOHN VILLEDA 01/05/17 05:27 Consult to Physician [CONS] Routine Consulting Provider: LIDIA CRUM Reason For Exam: colitis Place consult to:: answering service Notified:: yes Phone number called:: [phone] Was contact made?: Yes If yes, spoke with:: Nancie Time called:: 11:31 Primary care physician: BEAUTY THERAPIST Hospitalization Condition: Good Disposition: DISCHARGED TO HOME OR SELFCARE - Discharge Diagnoses (1) Gastritis and duodenitis Status: Acute (2) Colitis Status: Acute (3) HLD (hyperlipidemia) Status: Chronic Qualifiers: Hyperlipidemia type: mixed hyperlipidemia Qualified Code(s): E78.2 - Mixed hyperlipidemia (4) HTN (hypertension) Status: Chronic Qualifiers: Hypertension type: essential hypertension Qualified Code(s): I10 - Essential (primary) hypertension Exam - Constitutional Vitals: Temp Pulse Resp BP Pulse Ox 98.9 F 87 16 136/101 100 01/08/17 08:00 01/08/17 10:39 01/08/17 08:00 01/08/17 10:39 01/08/17 08:00 Plan Activity: no restrictions Diet: other (GI soft, diabetic,low fat diet) Additional Instructions: 1.Follow up with PCP or [facility] in 1 week. 2.Follow up with Dr. Constantino Chapin, GI in 1 week. 3.Follow up with [facility] in 1 week Follow up with: PRIMARY CARE, [Primary Care Provider] - 3-5 Days Prescriptions: Ciprofloxacin HCl [Ciprofloxacin TAB] 500 mg PO Q12H #14 tab metroNIDAZOLE [Flagyl] 500 mg PO Q8HR #21 tablet Pantoprazole [Protonix] 40 mg PO QDAY #30 tablet Promethazine [Phenergan TAB] 25 mg PO Q6HR PRN #20 tab PRN Reason: Nausea Sucralfate [Carafate] 1 gm PO Q6HR 14 Days
--- NOTE | 2017-01-08 13:33 | Gastroenterology Progress Note ---
Assessment and Plan GI: pt w/ nausea, vomiting now improving - advance diet as tolerated - continue po antibiotics for colitis - ok to d/c from GI standpoint - will sign off, call if needed Subjective Date of service: 01/08/17 Interval history: - pt reprots doing better, no other complaints Objective - Constitutional Vitals: Temp Pulse Resp BP Pulse Ox 98.9 F 78 18 136/101 100 01/08/17 08:00 01/08/17 10:49 01/08/17 10:49 01/08/17 10:39 01/08/17 08:00 General appearance: no acute distress - Respiratory Respiratory: bilateral: CTA - Cardiovascular Rhythm: regular Heart Sounds: Present: S1 & S2 - Gastrointestinal General gastrointestinal: Present: soft, non-tender - Labs CBC & Chem 7: 01/06/17 06:16 01/07/17 08:53 Labs: Laboratory Results - last 24 hr 01/05/17 16:33 POC Glucose 71
[2017-01-08] MEDS ORDERED: PNEUMOVAX 23 IM ONE (14:00)
[2017-01-08] MEDS ORDERED: FLUARIX QUAD 2016-2017(36 MOS+) IM ONE (14:15)
[2017-01-08 14:36] VITALS: BP 137/98
== END 2017-01-08 17:02 | disposition home or self-care (01) | DRG 392 ==
LOC: ED 16:03 → 4A 01-05 05:21 → 3A 01-05 06:16
PROVIDERS: ADMIT Internal Medicine; ATTEND Internal Medicine
PROC: 0DB98ZX Excision of Duodenum, Via Natural or Artificial Opening Endoscopic, Diagnostic (ICD-10-PCS; principal; 2017-01-07)
DX: K29.70 Gastritis, unspecified, without bleeding (principal); E89.6 Postprocedural adrenocortical (-medullary) hypofunction; K29.80 Duodenitis without bleeding; K52.9 Noninfective gastroenteritis and colitis, unspecified; I10 Essential (primary) hypertension; E11.9 Type 2 diabetes mellitus without complications; E78.00 Pure hypercholesterolemia, unspecified; F17.210 Nicotine dependence, cigarettes, uncomplicated; E78.2 Mixed hyperlipidemia; K44.9 Diaphragmatic hernia without obstruction or gangrene; Z83.3 Family history of diabetes mellitus; Z82.49 Family history of ischemic heart disease and other diseases of the circulatory system
CPT/HCPCS: 36415; 74177; 80048; 80053; 81001; 82962; 83036; 83690; 83735; 84100; 85025; 86140; 87210; 87591; 88305; 88312; 88342; 90686; 90732; 96365; 96366; 96367; 96375; 96376; J1170; J1650; J1885; J1956; J2405; J2543; J2704; J2765; J3480; J7030; J7042; Q9967